=== PATIENT | male | born 1990 | race Caucasian/White ===

== ENCOUNTER 2020-04-21 16:52 | Observation (INO) ==
[2020-04-21] MEDS ORDERED: Isovue-370 500 ML BOTTLE IVP ONE (17:57)
[2020-04-21] MEDS ORDERED: 0.9 % Sodium Chloride 1,000 ML IVC ONE (17:57)
[2020-04-21] MEDS ORDERED: Ketorolac 15 MG/ML VIAL IVP ONE (17:57)
[2020-04-21 18:52] LABS: Basophils # 0.1 K/mcL (0.0-0.2); Basophils % 0.2 %; Eosinophils % 0.1 %; Hematocrit 43.1 % (37.5-50.1); Hemoglobin 15.2 g/dL (12.9-16.9); Immature Granulocytes % 0.4 % (0-4); Lymphocytes # 1.3 K/mcL (0.6-4.6); Mean Corpuscular HGB Conc 35.3 g/dL (31.6-35.5); Mean Corpuscular Hemoglobin 30.3 pg (28.0-33.3); Mean Corpuscular Volume 85.9 fL (83.0-100.0); Mean Platelet Volume 9.3 fL (9.4-12.4); Monocytes # 1.2 K/mcL (0.0-1.3); Monocytes % 5.7 %; Neutrophils # 18.1 K/mcL (1.6-8.9); Platelet Count 321 K/mcL (140-400); Red Blood Count 5.02 M/mcL (4.19-5.50); Red Cell Distribution Width 12.2 % (11.5-14.5); Segmented Neutrophils % 87.6 %; White Blood Count 20.7 K/mcL (4.3-11.1)
[2020-04-21 19:09] LABS: Alanine Aminotransferase 22 Units/L (7-52); Albumin 5.2 g/dL (3.5-5.7); Albumin/Globulin Ratio 1.9 (1.1-2.2); Alkaline Phosphatase 54 Units/L (34-104); Aspartate Amino Transferase 20 Units/L (13-39); BUN/Creatinine Ratio 19 (6-26); Bilirubin,Total 0.6 mg/dL (0.3-1.0); Blood Urea Nitrogen 15 mg/dL (6-20); Calcium 9.9 mg/dL (8.6-10.3); Carbon Dioxide 28 mEq/L (23-29); Chloride 100 mEq/L (98-107); Globulin 2.7 g/dL (2.4-3.5); Glucose 114 mg/dL (70-105); Osmolality,Calculated 286 (280-300); Potassium 3.5 mEq/L (3.5-5.1); Sodium 137 mEq/L (136-145); Total Protein 7.9 g/dL (6.4-8.9); eGFR For African Americans > 60 (> 60); eGFR For Non-African Americans > 60 (> 60)
[2020-04-21] MEDS ORDERED: Piperacillin/Tazobactam 3.375 GM in 0.9 % Sodium Chloride Mini Bag 100 ML IVPB ONE (19:44)
[2020-04-21] MEDS ORDERED: 0.9 % Sodium Chloride 1,000 ML IVC SCH (20:00)
[2020-04-21] MEDS ORDERED: Acetaminophen IV 1,000 MG/100 ML BAG IVPB ONE (22:35)
[2020-04-21] MEDS ORDERED: *HR* HYDROmorphone (PF) 1 MG/ML SYRINGE IVP PRN (22:37)
[2020-04-21] MEDS ORDERED: *HR* Labetalol 20 MG/4 ML SYRINGE IVP PRN (22:37)
[2020-04-21] MEDS ORDERED: *HR* OxyCODONE Immed Rel 5 MG TABLET PO PRN (22:37)
[2020-04-21] MEDS ORDERED: Ondansetron 4 MG/2 ML VIAL IVP PRN (22:37)
[2020-04-21] MEDS ORDERED: *HR* Rocuronium Bromide 50 MG/5 ML VIAL ONE (22:51)
[2020-04-21] MEDS ORDERED: *HR* Succinylcholine 200 MG/10 ML VIAL IVP ONE (22:51)
[2020-04-21] MEDS ORDERED: Lidocaine -MPF 2% 2 ML VIAL ONE (22:51)
[2020-04-21] MEDS ORDERED: Dexamethasone 4 MG/ML VIAL ONE (22:51)
[2020-04-21] MEDS ORDERED: Ondansetron 4 MG/2 ML VIAL ONE (22:51)
[2020-04-21] MEDS ORDERED: *HR* FentaNYL (PF) 100 MCG/2 ML VIAL ONE (22:51)
[2020-04-21] MEDS ORDERED: *HR* Propofol 200 MG/20 ML VIAL IVP ONE (22:51)
[2020-04-22] MEDS ORDERED: *HR* HYDROMORPHONE 2 MG/ML VIAL ONE (00:37)
[2020-04-22] MEDS ORDERED: *HR* OxyCODONE/APAP 5/325 TABLET PO PRN ×2 (01:12→02:35)
[2020-04-22] MEDS ORDERED: Ondansetron 4 MG/2 ML VIAL IVP PRN ×2 (01:12→02:35)
[2020-04-22 04:02] LABS: Basophils % 0.2 %; Eosinophils % 0.1 %; Hematocrit 37.2 % (37.5-50.1); Hemoglobin 13.2 g/dL (12.9-16.9); Immature Granulocytes % 0.3 % (0-4); Lymphocytes # 0.9 K/mcL (0.6-4.6); Mean Corpuscular HGB Conc 35.5 g/dL (31.6-35.5); Mean Corpuscular Hemoglobin 30.8 pg (28.0-33.3); Mean Corpuscular Volume 86.7 fL (83.0-100.0); Mean Platelet Volume 9.3 fL (9.4-12.4); Monocytes # 0.3 K/mcL (0.0-1.3); Monocytes % 1.9 %; Neutrophils # 13.7 K/mcL (1.6-8.9); Platelet Count 264 K/mcL (140-400); Red Blood Count 4.29 M/mcL (4.19-5.50); Red Cell Distribution Width 12.4 % (11.5-14.5); Segmented Neutrophils % 91.5 %; White Blood Count 14.9 K/mcL (4.3-11.1)
[2020-04-22] MEDS: Ketorolac 15 MG/ML VIAL IVP SCH ×2 (05:29→12:34)
[2020-04-22] MEDS ORDERED: Ketorolac 15 MG/ML VIAL IVP SCH (06:00)
[2020-04-22] MEDS ORDERED: Piperacillin/Tazobactam 3.375 GM in 0.9 % Sodium Chloride Mini Bag 100 ML IVPB SCH (08:00)
[2020-04-22 11:08] VITALS: BP 123/66
== END 2020-04-22 16:02 | disposition home or self-care (01) ==
LOC: EMEROOARM 16:52 → 3ANU 16:52
PROVIDERS: ADMIT Surgery; ATTEND Surgery